=== PATIENT | male | born 1940 | race Caucasian/White ===

== ENCOUNTER 2017-04-25 02:31 | Inpatient (IN) | payer OTHER ==
[~2017-04-25] VITALS: Ht 180.3 cm; Wt 94.1 kg
[2017-04-25] MEDS ORDERED: SODIUM CHLORIDE FLUSH 10ML SYR IVF ONE (03:00)
[2017-04-25 03:15] LABS: HEMATOCRIT 39.2 % (39.2-51.8); HEMOGLOBIN 13.5 g/dL (13.7-18.0); WHITE BLOOD COUNT 8.2 x10^3/uL (3.4-10)
[2017-04-25] MEDS ORDERED: OMEG1CAP23 PO (03:19)
[2017-04-25] MEDS ORDERED: POTA8CAP PO (03:19)
[2017-04-25] MEDS ORDERED: AMLO2.5T PO (03:19)
[2017-04-25] MEDS ORDERED: MULT-204 PO (03:19)
[2017-04-25] MEDS ORDERED: FURO20TA3 PO (03:19)
[2017-04-25] MEDS ORDERED: PREG25CA PO (03:19)
[2017-04-25] MEDS ORDERED: ATOR-2 PO (03:19)
[2017-04-25] MEDS ORDERED: METF500T4 PO (03:26)
[2017-04-25] MEDS ORDERED: PANT40TA5 PO (03:26)
[2017-04-25] MEDS ORDERED: CHOL200074 PO (03:26)
[2017-04-25] MEDS ORDERED: ASPI-496 PO (03:26)
[2017-04-25 03:28] LABS: BLOOD UREA NITROGEN 27 mg/dL (7-18)
[2017-04-25 03:35] LABS: ASPARTATE AMINO TRANSFERASE 45 U/L (15-37); IS PT STATUS REG ER OR PRE ER? YES
[2017-04-25] MEDS ORDERED: FUROSEMIDE 40 MG/4 ML ONE (03:48)
[2017-04-25] MEDS ORDERED: FUROSEMIDE 40 MG/4 ML IV ONE (04:00)
[2017-04-25] MEDS ORDERED: TEMAZEPAM 15 MG CAPSULE PO PRN (05:00)
[2017-04-25] MEDS ORDERED: ACETAMINOPHEN 325 MG TABLET PO PRN (05:00)
[2017-04-25] MEDS ORDERED: LABETALOL 5MG/ML, 20ML IVPush PRN (05:00)
[2017-04-25] MEDS ORDERED: DOCUSATE 100 MG CAPSULE PO PRN (05:00)
[2017-04-25] MEDS ORDERED: LISINOPRIL 10 MG TABLET PO ONE (05:00)
[2017-04-25] MEDS ORDERED: morphine SULFATE 10 MG/ML, 1ML IVPush PRN (05:00)
[2017-04-25] MEDS ORDERED: ONDANSETRON ODT 4 MG PO PRN (05:00)
[2017-04-25] MEDS: METOPROLOL TARTRATE 25 MG TABLET PO SCH ×2 (05:59→16:06)
[2017-04-25 06:15] LABS: IS PT STATUS REG ER OR PRE ER? NO
[2017-04-25 06:36] VITALS: BP 136/57
[2017-04-25] MEDS: FUROSEMIDE 20 MG/2 ML IV SCH ×2 (07:30→16:02)
[2017-04-25] MEDS: POTASSIUM CHLORIDE 20 MEQ PACKET PO SCH ×2 (08:17→16:03)
[2017-04-25] MEDS: PANTOPROZOLE 40MG TABLET PO SCH (08:17)
[2017-04-25] MEDS: ASPIRIN 81 MG TABLET EC PO SCH (08:17)
[2017-04-25 08:19] VITALS: BP 118/73
[2017-04-25 10:30] LABS: IS PT STATUS REG ER OR PRE ER? NO
[2017-04-25] MEDS ORDERED: REGADENOSON 0.4 MG/5 ML SYRINGE ONE (10:40)
[2017-04-25 14:17] VITALS: BP 106/63
[2017-04-25 19:48] VITALS: BP 107/66
[2017-04-25] MEDS ORDERED: ATORVASTATIN 80 MG TABLET PO SCH (21:00)
[2017-04-26 03:38] VITALS: BP 115/72
[2017-04-26 05:47] LABS: BLOOD UREA NITROGEN 20 mg/dL (7-18)
[2017-04-26 05:55] LABS: ASPARTATE AMINO TRANSFERASE 15 U/L (15-37)
[2017-04-26] MEDS: METOPROLOL TARTRATE 25 MG TABLET PO SCH (06:32)
[2017-04-26] MEDS: ASPIRIN 81 MG TABLET EC PO SCH (08:17)
[2017-04-26] MEDS: PANTOPROZOLE 40MG TABLET PO SCH (08:17)
[2017-04-26] MEDS: FUROSEMIDE 20 MG/2 ML IV SCH (08:17)
[2017-04-26] MEDS: POTASSIUM CHLORIDE 20 MEQ PACKET PO SCH (08:17)
[2017-04-26 08:24] VITALS: BP 113/59
== END 2017-04-26 14:25 | disposition home or self-care (01) | DRG 291 ==
LOC: ED 04:00 → EDIP 04:01 → ED 04:09 → 5SO 05:07 → DCLOUNGE 04-26 14:14
PROVIDERS: ADMIT Internal Medicine; ATTEND Internal Medicine
DX: I13.0 Hypertensive heart and chronic kidney disease with heart failure and stage 1 through stage 4 chronic kidney disease, or unspecified chronic kidney disease (principal); I50.21 Acute systolic (congestive) heart failure; E44.0 Moderate protein-calorie malnutrition; E11.22 Type 2 diabetes mellitus with diabetic chronic kidney disease; E78.00 Pure hypercholesterolemia, unspecified; I49.3 Ventricular premature depolarization; N18.9 Chronic kidney disease, unspecified; R07.89 Other chest pain; R09.02 Hypoxemia; Z85.46 Personal history of malignant neoplasm of prostate; Z85.51 Personal history of malignant neoplasm of bladder; Z87.891 Personal history of nicotine dependence; Z95.3 Presence of xenogenic heart valve
CPT/HCPCS: 36415; 71010; 78452; 80053; 80061; 83036; 83735; 83880; 84100; 84443; 84484; 85025; 85610; 85730; 93005; 93017; 93306; 96374; J1940; J2785; A9502; C9898